=== PATIENT | male | born 1955 | race Caucasian/White ===

== ENCOUNTER 2018-11-15 07:31 | Day surgery (SDC) | payer MEDICARE, OTHER ==
[2018-11-11 15:57] VITALS: BMI 28.0
[~2018-11-15 07:31] MED LIST: LACTATED RINGERS 1,000 ML IV SCH; LIDOCAINE 1% 20 ML VIAL (10MG/ML) FOR IV START INTRADERMA PRN
[2018-11-15 07:56] VITALS: TEMP 97.2
[2018-11-15 08:08] LABS: Glucose,Whole Blood 113 mg/dL (75-99)
[2018-11-15] MEDS ORDERED: KETAMINE 10 MG/ML 20 ML VIAL ONE (08:30)
[2018-11-15] MEDS ORDERED: PROPOFOL 10 MG/ML 20 ML VIAL IV ONE (08:30)
--- NOTE | 2018-11-15 09:06 | P.PCN ---
Date of Procedure: 11/15/18 Procedure(s) Performed: Procedure: Colonoscopy and biopsy. Preoperative diagnosis: Screening for neoplasia. Postoperative diagnosis: Diminutive polyp distal sigmoid biopsied, otherwise, exam to the cecum within normal limits. Preparation: HalfLytely prep. Sedation: Was provided by anesthesia. Brief clinical history: The patient is a 63-year-old male who is scheduled for this evaluation for screening for neoplasia age being his risk factor. He had a prior exam 10 years ago. The patient has no significant complaints, bleeding or anemia. He did have some issues with back pain and associated constipation recently that has responded to treatment. Procedure: With the patient on his left lateral decubitus position and after informed consent and adequate sedation, the perianal area was inspected and it did not show any fissures or fistulas. There were no masses felt on digital rectal examination. The Olympus CFH 190L colonoscope was then inserted in the rectum in the usual fashion and advanced to the cecum. The mucosa appeared healthy. There was a diminutive polyp in the distal sigmoid which I biopsied, otherwise, exam to the cecum within normal limits. The mucosa appeared healthy. No obvious diverticular disease. I retroflexed the endoscope in the rectum before the endoscope was withdrawn. The patient tolerated the procedure well. Plan: The patient was reassured. Discussed dietary measures. Would consider repeat exam in 5-10 years depending on the pathology results. He will follow up with you as planned.
[2018-11-15 09:22] VITALS: BP 118/72; PULSE 59; RESP 16
[2018-11-15 09:28] LABS: Glucose,Whole Blood 75 mg/dL (75-99)
== END 2018-11-15 09:30 | disposition home or self-care (01) ==
LOC: ORWHC2ENDO 07:31
DX: Z12.11 Encounter for screening for malignant neoplasm of colon (principal); K63.5 Polyp of colon; K63.89 Other specified diseases of intestine; I48.91 Unspecified atrial fibrillation; I25.10 Atherosclerotic heart disease of native coronary artery without angina pectoris; E11.9 Type 2 diabetes mellitus without complications; I10 Essential (primary) hypertension; E78.5 Hyperlipidemia, unspecified; Z95.5 Presence of coronary angioplasty implant and graft; K21.9 Gastro-esophageal reflux disease without esophagitis; E07.9 Disorder of thyroid, unspecified; G47.33 Obstructive sleep apnea (adult) (pediatric); Z99.89 Dependence on other enabling machines and devices; Z79.82 Long term (current) use of aspirin; Z79.890 Hormone replacement therapy; Z79.01 Long term (current) use of anticoagulants; Z79.4 Long term (current) use of insulin
CPT/HCPCS: 88305; 45380; J2704

== ENCOUNTER → 2021-04-01 | Outpatient (CLI) | payer MEDICARE, OTHER ==
--- NOTE | 2021-04-01 09:27 | US ---
EXAMINATION TYPE: US duplex aorta DATE OF EXAM: 04/01/2021 COMPARISON: NONE CLINICAL HISTORY: 65-year-old male Z13.6 SCREENING FOR CARDIOVASCULAR DISORDER. EXAM MEASUREMENTS: Abdominal Aorta: Proximal: obscured Mid: 1.5 x 1.9cm Distal: 1.4 x 1.9cm Right Iliac: 0.8 x 1.3cm Left Iliac: 1.0 x 1.3cm De Icer Element Winder notes: Atherosclerotic changes, proximal portion obscured, no AAA seen IMPRESSION: The proximal abdominal aorta is obscured and could not be assessed. No evidence for any significant e ctasia or AAA of the mid to distal portions of the abdominal aorta.
== END | disposition home or self-care (01) ==
LOC: RADUSWWP 08:52
PROVIDERS: ATTEND Family Medicine
DX: Z13.6 Encounter for screening for cardiovascular disorders (principal)
CPT/HCPCS: 93979

== ENCOUNTER → 2022-01-31 | Outpatient (CLI) | payer MEDICARE, OTHER ==
--- NOTE | 2022-01-31 10:21 | CT ---
EXAMINATION TYPE: CT brain wo con DATE OF EXAM: 01/31/2022 HISTORY: Amnesia CT DLP: 1129 mGycm. Automated Exposure Control for Dose Reduction was Utilized. TECHNIQUE: CT scan of the head is performed without contrast. COMPARISON: None. FINDINGS: There is no acute intracranial hemorrhage or midline shift identified. There is mild diff use ventricular and sulcal prominence consistent with diffuse age-related cerebral atrophy. Stacy-whit e matter differentiation is maintained. Patchy cerumen is seen in the deep bilateral external audito ry canals. The globes are intact and the visualized sinuses are clear. IMPRESSION: No acute intracranial hemorrhage or midline shift. There is mild diffuse age-related ce rebral atrophy noted.
== END | disposition home or self-care (01) ==
LOC: RADCTMAIN 08:30
PROVIDERS: ATTEND Family Medicine
DX: G31.9 Degenerative disease of nervous system, unspecified (principal)
CPT/HCPCS: 70450

== ENCOUNTER → 2022-04-08 | Outpatient (CLI) | payer MEDICARE, OTHER ==
--- NOTE | 2022-04-09 09:04 | US ---
EXAMINATION TYPE: US arterial LE single level DATE OF EXAM: 04/08/2022 2:18 PM CLINICAL HISTORY: I73.9 PERIPHERAL VASCULAR DISEASE, UNSPECIFIED. History of hyperlipidemia, coronary artery disease, diabetes, peripheral vascular disease, prior vascular surgery. Doppler Waveforms: Right: Biphasic Left: Biphasic Pressure Gradients: Flattened on the right Ankle-Brachial Indices: Right: CNO Left: CNO Toe Brachial Indices: Right: 0 Left: 0.83 IMPRESSION: Nondiagnostic study.
== END | disposition home or self-care (01) ==
LOC: RADUSWWP 13:39
PROVIDERS: ATTEND Family Medicine
DX: I73.9 Peripheral vascular disease, unspecified (principal)
CPT/HCPCS: 93922

== ENCOUNTER 2022-05-14 11:38 | Inpatient (IN) | payer MEDICARE, OTHER ==
[2022-05-14 15:33] LABS: Basophils % (A) 0 %; Eosinophils # (A) 0.1 k/uL (0-0.7); Eosinophils % (A) 1 %; HCT 46.9 % (39.0-53.0); HGB 15.5 gm/dL (13.0-17.5); Lymphocytes # (A) 2.7 k/uL (1.0-4.8); Lymphocytes % (A) 25 %; MCH 29.7 pg (25.0-35.0); MCHC 33.1 g/dL (31.0-37.0); MCV 89.9 fL (80.0-100.0); Mean Platelet Volume 7.8; Monocytes # (A) 0.5 k/uL (0-1.0); Monocytes % (A) 5 %; Neutrophils # (A) 7.2 k/uL (1.3-7.7); Neutrophils % (A) 68 %; Platelet Count 291 k/uL (150-450); RBC 5.22 m/uL (4.30-5.90); RDW 13.3 % (11.5-15.5); WBC 10.7 k/uL (3.8-10.6)
--- NOTE | 2022-05-14 15:34 | ED ---
General Adult HPI - General Chief complaint: Neuro Symptoms/Deficit Stated complaint: Confusion Time Seen by Provider: 05/14/22 14:28 Source: patient, RN notes reviewed, old records reviewed Mode of arrival: ambulatory Limitations: no limitations - History of Present Illness Initial comments: This is a 66-year-old male who presents emergency Department with a past medical history significant for coronary artery disease and multiple stents. Patient al so has diabetes Patient comes in today because she's had multiple episodes of unresponsiveness according to the . states this started in January and usually last about 5 minutes and then he comes around but during that 5 minutes he does not communicate and he just stares off. states when he comes around he doesn't remember it occurring anterior murmurs or wheezing prior to the event and after the event and he usually back to his baseline quickly. Today the states that it lasted 15 minutes so she decided to bring to the emergency department even though he came back to his baseline after 15 minutes. states she's no shaking or stiffness. states that they never took his sugar when any of these events are occurring. Patient has been feeling fine recently is been no injury or trauma. Patient had a CAT scan back in January and it was normal according to the . Patient currently is at his baseline and has no complaints - Related Data Home Medications Medication Instructions Recorded Confirmed Aspirin [Adult Low Dose Aspirin EC] 81 mg PO DAILY 11/11/18 11/15/18 Atorvastatin [Lipitor] 80 mg PO HS 11/11/18 11/15/18 Citalopram Hydrobromide 20 mg PO DAILY 11/11/18 11/15/18 [Citalopram HBr] Dapagliflozin Propanediol [Farxiga] 5 mg PO DAILY 11/11/18 11/15/18 Insuln Asp Prt/Insulin Aspart 25 unit SQ BID 11/11/18 11/15/18 [NovoLOG MIX 70-30 VIAL] Levothyroxine Sodium [Synthroid] 150 mcg PO QAM 11/11/18 11/15/18 Warfarin [Coumadin] 10 mg PO HS 11/11/18 11/15/18 lisinopriL [Prinivil] 10 mg PO HS 11/11/18 11/15/18 metFORMIN HCL [Glucophage] 500 mg PO BID 11/11/18 11/15/18 raNITIdine HCL [Zantac] 150 mg PO QAM 11/11/18 11/15/18 sitaGLIPtin PHOSPHATE [Januvia] 100 mg PO DAILY 11/11/18 11/15/18 Allergies Allergy/AdvReac Type Severity Reaction Status Date / Time No Known Allergies Allergy Verified 05/14/22 12:38 Review of Systems ROS Statement: Those systems with pertinent positive or pertinent negative responses have been documented in the HPI. ROS Other: All systems not noted in ROS Statement are negative. Past Medical History Past Medical History: Atrial Fibrillation, Coronary Artery Disease (CAD), Cancer, Diabetes Mellitus, Eye Disorder, Hyperlipidemia, Hypertension, Sleep Apnea/CPAP/BIPAP, Thyroid Disorder Additional Past Medical History / Comment(s): no cpap used, lower rt abdominal pain, change in bowel habits, melanoma, diabetic retinopathy History of Any Multi-Drug Resistant Organisms: None Reported Past Surgical History: Cardiac Ablation, Heart Catheterization With Stent Additional Past Surgical History / Comment(s): 7 cardiac stents, melanoma removed from back, cardiac ablation x 2, Past Anesthesia/Blood Transfusion Reactions: Motion Sickness Date of Last Stent Placement:: 2016 Past Psychological History: Depression Past Alcohol Use History: Occasional Past Drug Use History: None Reported - Past Family History Mother Family Medical History: No Reported History General Exam - General Exam Comments Initial Comments: GENERAL: Patient is well-developed and well-nourished. Patient is nontoxic and well- hydrated and is in no acute distress. ENT: Neck is soft and supple. No significant lymphadenopathy is noted. Oropharynx is clear. Moist mucous membranes. Neck has full range of motion without eliciting any pain. EYES: The sclera were anicteric and conjunctiva were pink and moist. Extraocular movements were intact and pupils were equal round and reactive to light. Eyelids were unremarkable. PULMONARY: Unlabored respirations. Good breath sounds bilaterally. No audible rales rhonchi or wheezing was noted. CARDIOVASCULAR: There is a regular rate and rhythm without any murmurs gallops or rubs. ABDOMEN: Soft and nontender with normal bowel sounds. SKIN: Skin is clear with no lesions or rashes and otherwise unremarkable. NEUROLOGIC: Patient is alert and oriented x3. Cranial nerves II through XII are grossly intact. Motor and sensory are also intact. Normal speech, volume and content. Symmetrical smile. MUSCULOSKELETAL: Normal extremities with adequate strength and full range of motion. LYMPHATICS: No significant lymphadenopathy is noted PSYCHIATRIC: Normal psychiatric evaluation. Limitations: no limitations Course Vital Signs 05/14/22 05/14/22 05/14/22 12:31 15:05 16:02 Temperature 97.6 F Pulse Rate 68 70 68 Respiratory 20 15 16 Rate Blood Pressure 117/74 129/85 139/88 O2 Sat by Pulse 95 97 96 Oximetry Medical Decision Making - Medical Decision Making I review the old CAT scan and had no acute abnormalities noted. At this point time since he was back to his baseline he had no neurologic deficits I did not feel a second CAT scan was a seizure. Patient needs to follow-up and get an MRI and possibly see a neurologist for seizures. I spoke with the family and they were in agreement with discharge however just prior to discharge he had another episode emergency department last between 5 and 10 minutes and he was somewhat postictal and slowly came around to his baseline. I was sound physicians and they agreed to admit the patient I admitted the patient I wrote admitting orders. I consult the neurology. - Lab Data Result diagrams: 05/14/22 15:19 05/14/22 15:19 Lab Results 05/14/22 05/14/22 05/14/22 Range/Units 15:19 15:19 15:55 WBC 10.7 H (3.8-10.6) k/uL RBC 5.22 (4.30-5.90) m/uL Hgb 15.5 (13.0-17.5) gm/dL Hct 46.9 (39.0-53.0) % MCV 89.9 (80.0-100.0) fL MCH 29.7 (25.0-35.0) pg MCHC 33.1 (31.0-37.0) g/dL RDW 13.3 (11.5-15.5) % Plt Count 291 (150-450) k/uL MPV 7.8 Neutrophils % 68 % Lymphocytes % 25 % Monocytes % 5 % Eosinophils % 1 % Basophils % 0 % Neutrophils # 7.2 (1.3-7.7) k/uL Lymphocytes # 2.7 (1.0-4.8) k/uL Monocytes # 0.5 (0-1.0) k/uL Eosinophils # 0.1 (0-0.7) k/uL Basophils # 0.0 (0-0.2) k/uL Sodium 137 (137-145) mmol/L Potassium 5.2 H (3.5-5.1) mmol/L Chloride 99 (98-107) mmol/L Carbon Dioxide 22 (22-30) mmol/L Anion Gap 16 mmol/L BUN 15 (9-20) mg/dL Creatinine 0.72 (0.66-1.25) mg/dL Est GFR (CKD-EPI)AfAm >90 (>60 ml/min/1.73 sqM) Est GFR (CKD-EPI)NonAf >90 (>60 ml/min/1.73 sqM) Glucose 158 H (74-99) mg/dL POC Glucose (mg/dL) 144 H (70-110) mg/dL POC Glu Lever Tender ID Bipin Gómez Calcium 9.2 (8.4-10.2) mg/dL Total Bilirubin 1.0 (0.2-1.3) mg/dL AST 42 (17-59) U/L ALT 33 (4-49) U/L Alkaline Phosphatase 56 (38-126) U/L Total Protein 7.6 (6.3-8.2) g/dL Albumin 4.7 (3.5-5.0) g/dL Disposition Clinical Impression: Unresponsive episode, Absence seizure Disposition: ADMITTED IP TO THIS [facility] Instructions (If sedation given, give patient instructions): Seizure/Epilepsy Discharge Instructions & Follow-Up Is patient prescribed a controlled substance at d/c from ED?: No Referrals: Jose Goodson MD [Primary Care Provider] - 1-2 days Time of Disposition: 15:39
[2022-05-14 15:35] LABS: ALT 33 U/L (4-49); AST 42 U/L (17-59); African American GFR (CKD) >90 (>60 ml/min/1.73 sqM); Albumin 4.7 g/dL (3.5-5.0); Alkaline Phosphatase 56 U/L (38-126); Anion Gap 16 mmol/L; Blood Urea Nitrogen 15 mg/dL (9-20); Calcium 9.2 mg/dL (8.4-10.2); Carbon Dioxide 22 mmol/L (22-30); Chloride 99 mmol/L (98-107); Glucose 158 mg/dL (74-99); Non-African American GFR(CKD) >90 (>60 ml/min/1.73 sqM); Sodium 137 mmol/L (137-145); Total Protein 7.6 g/dL (6.3-8.2)
[2022-05-14 15:36] LABS: Potassium 5.2 mmol/L (3.5-5.1)
[2022-05-14 15:58] LABS: Glucose,Whole Blood 144 mg/dL (70-110)
[2022-05-14] MEDS ORDERED: ASPIRIN 325 MG TAB PO STA (16:08)
--- NOTE | 2022-05-14 17:03 | P.HPIM ---
History of Present Illness H&P Date: 05/14/22 History of Presenting Illness: Patient is a very pleasant 66-year-old male with a past medical history of CAD with 9 stents on anticoagulation with Coumadin, hypertension, hyperlipidemia, hypothyroidism, and insulin-dependent diabetes mellitus. He presented to the emergency department along with his and son secondary to reports of episodes of loss of consciousness. Patient's and son at bedside reports that since January patient has had at least 5 episodes in which he suddenly loses consciousness typically lasting anywhere from 30 seconds to 5 minutes and is followed by a brief period of confusion.. She reports today the episode lasted longer than it ever has approximately 15 minutes and was again followed by confusion that she brought him to the emergency department for evaluation. In the emergency department, patient underwent extensive evaluation. During this evaluation patient was noted to have a brief episode of unresponsiveness reportedly lasting between 5 and 10 minutes again followed by what was described as a slightly postictal episode prior to returning to baseline. Patient denies having any complaints prior to loss of consciousness including headache, lightheadedness, dizziness, chest pain, palpitations, changes in taste/smell/vision/hearing, or experiencing any numbness/tingling/weakness in his extremities. Patient states he does not remember event and upon returning to baseline again had no complaints. He underwent full evaluation in the emergency department. CBC revealed mild leukocytosis with WBC count of 10.7 and CMP was unremarkable with the exception of hyperkalemia at 5.2 reported as a hemolyzed specimen. Blood glucose was stable at 158. Patient admitted under our services with consultation to neurology and cardiology. Review of systems: Pertinent positives and negatives as discussed in HPI, a complete review of systems was performed and all other systems are negative. Physical exam: Vital signs reviewed and stable. General: Nontoxic, no distress and appears stated age. Derm: Skin warm and dry, normal coloration for ethnicity. Head: Atraumatic, normocephalic and symmetric. Eyes: EOMs intact, no lid lag, and anicteric sclera Mouth: no lip lesions, mucus membranes moist Cardiovascular: regular rate and rhythm with normal S1S2, no murmur, positive posterior tibial pulses bilaterally, and cap refill < 2 seconds. Lungs: Respirations even, regular, and unlabored on room air. Lungs CTA bilaterally, no rhonchi, no rales, no wheezing, and no accessory muscle usage. Abdominal: soft, nontender to palpation, no guarding, no appreciable organomegaly Ext: ROM intact. No gross muscle atrophy, no edema, no contractures Neuro: Speech clear, face symmetrical and CN II-XII grossly intact with no noted focal neuro deficits Psych: Alert and oriented to person, place, time, and situation. Appropriate and pleasant affect. Assessment and Plan of Care: Loss of consciousness Syncopal episode vs Seizure -Seizure precautions, aspiration precautions, and fall precautions in place. -Neuro checks every 4 hours. -Telemetry monitoring -Order placed for CT of head and EKG to be completed -Stat PT/INR -Neurology consulted -Cardiology consulted -Patient informed of [place] state law stating no driving until free from any loss of consciousness for 6 months. Patient also instructed to avoid climbing ladders, operating dangerous or heavy machinery or unsupervised swimming until seizure free for 6 months. -Echocardiogram -EEG Insulin-dependent diabetes mellitus -Glycemic protocol and continue home insulin regimen . History of CAD Hypertension Hyperlipidemia -Stat PT/INR as patient is on anticoagulation with Coumadin -Continue daily cardiac medication regimen with aspirin, atorvastatin, Coumadin, and metoprolol. Hypothyroidism -TSH with free T4 to be completed. -Continue daily medication regimen with level thyroxine. The patient is admitted with an anticipated less than 2 midnight stay for evaluation of episodic loss of consciousness syncopal episode versus seizure. CODE STATUS: Full code DVT prophylaxis: Coumadin Discussed with: patient, patient's , patient's son, and RN Anticipated discharge date: 24-[address]: : Home A total of 49 minutes was spent on the care of this complex patient more than 50% of the time was spent in counseling and care coordination. I reviewed the documentation as provided by the PIPPA above, who is the original author of this note. I agree with the documented assessment and plan, with the following changes: none Past Medical History Past Medical History: Atrial Fibrillation, Coronary Artery Disease (CAD), Cancer, Diabetes Mellitus, Eye Disorder, Hyperlipidemia, Hypertension, Sleep Apnea/CPAP/BIPAP, Thyroid Disorder Additional Past Medical History / Comment(s): no cpap used, lower rt abdominal pain, change in bowel habits, melanoma, diabetic retinopathy History of Any Multi-Drug Resistant Organisms: None Reported Past Surgical History: Cardiac Ablation, Heart Catheterization With Stent Additional Past Surgical History / Comment(s): 7 cardiac stents, melanoma removed from back, cardiac ablation x 2, Past Anesthesia/Blood Transfusion Reactions: Motion Sickness Date of Last Stent Placement:: 2016 Past Psychological History: Depression Past Alcohol Use History: Occasional Past Drug Use History: None Reported - Past Family History Mother Family Medical History: No Reported History Medications and Allergies Home Medications Medication Instructions Recorded Confirmed Type Aspirin [Adult Low Dose Aspirin EC] 81 mg PO DAILY 11/11/18 05/14/22 History Atorvastatin [Lipitor] 80 mg PO DAILY 11/11/18 05/14/22 History Cholecalciferol [Vitamin D3 (25 25 mcg PO DAILY 05/14/22 05/14/22 History Mcg = 1000 Iu)] DULoxetine HCL [Cymbalta] 30 mg PO DAILY 05/14/22 05/14/22 History Empaglifloz/Linaglip/Metformin 1 tab PO DAILY 05/14/22 05/14/22 History [Trijardy Xr 25-5-1,000 mg Tab] Famotidine [Pepcid] 40 mg PO DAILY 05/14/22 05/14/22 History Insuln Asp Prt/Insulin Aspart 5 unit SQ AC-BRKFST 05/14/22 05/14/22 History [NovoLOG MIX 70-30 VIAL] Insuln Asp Prt/Insulin Aspart 10 unit SQ AC-SUPPER 05/14/22 05/14/22 History [NovoLOG MIX 70-30 VIAL] LORazepam [Ativan] 0.5 mg PO DAILY 05/14/22 05/14/22 History Levothyroxine Sodium [Synthroid] 125 mcg PO DAILY 05/14/22 05/14/22 History Metoprolol Succinate (ER) [Toprol 25 mg PO HS 05/14/22 05/14/22 History Xl] Mirtazapine [Remeron] 15 mg PO HS 05/14/22 05/14/22 History Warfarin Sodium 3 mg PO HS 05/14/22 05/14/22 History Warfarin Sodium 4 mg PO HS 05/14/22 05/14/22 History metFORMIN HCL [Glucophage] 1,000 mg PO W/SUPPER 05/14/22 05/14/22 History Allergies Allergy/AdvReac Type Severity Reaction Status Date / Time No Known Allergies Allergy Verified 05/14/22 12:38 Physical Exam Osteopathic Statement: *. No significant issues noted on an osteopathic structural exam other than those noted in the History and Physical/Consult. Vitals: Vital Signs Temp Pulse Resp BP Pulse Ox 05/14/22 16:02 68 16 139/88 96 05/14/22 15:05 70 15 129/85 97 05/14/22 12:31 97.6 F 68 20 117/74 95 Intake and Output 05/14/22 05/14/22 05/14/22 06:59 14:59 22:59 Other: Weight 79.379 kg Results CBC & Chem 7: 05/14/22 15:19 05/14/22 15:19 Labs: Abnormal Lab Results - Last 24 Hours (Table) 05/14/22 05/14/22 05/14/22 Range/Units 15:19 15:19 15:55 WBC 10.7 H (3.8-10.6) k/uL Potassium 5.2 H (3.5-5.1) mmol/L Glucose 158 H (74-99) mg/dL POC Glucose (mg/dL) 144 H (70-110) mg/dL
[2022-05-14] MEDS ORDERED: NALOXONE 0.4 MG/ML 1 ML VIAL IVP PRN (17:05)
[2022-05-14 18:32] LABS: Glucose,Whole Blood 133 mg/dL (70-110)
[2022-05-14] MEDS ORDERED: DEXTROSE 50% SYRINGE 50 ML IVP PRN ×2 (18:41)
[2022-05-14 19:56] LABS: INR 2.3 (<1.2); Partial Thromboplastin Time 30.9 sec (22.0-30.0); Prothrombin Time 23.2 sec (9.0-12.0)
[2022-05-14] MEDS: MIRTAZAPINE 15 MG TAB PO SCH (22:35)
[2022-05-14] MEDS: METOPROLOL SUCCINATE (ER) 25 MG TAB.ER.24H PO SCH (22:35)
[2022-05-14] MEDS: WARFARIN 2 MG TAB PO SCH (22:36)
[2022-05-14] MEDS: WARFARIN 5 MG TAB PO SCH (22:36)
[2022-05-15 06:09] LABS: Glucose,Whole Blood 97 mg/dL (70-110)
[2022-05-15] MEDS: LEVOTHYROXINE 125 MCG TAB PO SCH (06:46)
[2022-05-15] MEDS: INSULN ASP PRT/INSULIN ASPART 100 UNIT/ML 10 ML VIAL SQ SCH (06:46)
[2022-05-15] MEDS: PANTOPRAZOLE 40 MG TABLET PO SCH (06:46)
[2022-05-15 07:30] LABS: INR 2.3 (<1.2); Prothrombin Time 22.7 sec (9.0-12.0)
[2022-05-15] MEDS ORDERED: ASPIRIN 325 MG TAB PO SCH (09:00)
[2022-05-15] MEDS: DULoxetine HCL 30 MG CAPSULE.DR PO SCH (09:53)
[2022-05-15] MEDS: FAMOTIDINE 20 MG TAB PO SCH (09:53)
[2022-05-15] MEDS: CHOLECALCIFEROL 25 MCG (1000 IU) TABLET PO SCH (09:53)
[2022-05-15] MEDS: ATORVASTATIN 80 MG TAB PO SCH (09:53)
[2022-05-15] MEDS: ASPIRIN 81 MG PO SCH (09:53)
--- NOTE | 2022-05-15 10:13 | P.CRDCN ---
History of Present Illness Consult date: 05/15/22 History of present illness: HISTORY OF PRESENT ILLNESS: This is a 66-year-old male with a past medical history significant for hypertension, hyperlipidemia, diabetes, paroxysmal atrial fibrillation with 2 previous ablations, and coronary artery disease with multivessel PCI. Patient follows with Dr. Byers. We have been asked to see the patient in consultation for syncope versus seizure. Patient examined at the bedside. Patient states over the past few months he has been having episodes where he "zones out". He states he does not loss consciousness. He reports feeling confused after these episodes. He denies loss of bowel or bladder. Denies chest pain or pressure. Denies SOB. Denies dizziness or lightheadedness. * EKG reveals sinus mechanism with no signs of acute ischemia * Laboratory data: WBC 10.7. Hemoglobin 14.5. Platelet Count 291. INR 2.3. Sodium 137. Potassium 5.2. BUN 15. Creatinine 0.72. TSH 3.980. * Current home cardiac medications include Lipitor 80 mg daily, warfarin 7 mg daily, aspirin 81 mg daily, metoprolol succinate 25 mg at night REVIEW OF SYSTEMS: At the time of my exam: CONSTITUTIONAL: Denies fever or chills. HEENT: Denies blurred vision, vision changes, or eye pain. Denies hemoptysis CARDIOVASCULAR: Denies chest pain. Denies orthopnea. Denies PND. Denies palpitations RESPIRATORY: Denies shortness of breath. GASTROINTESTINAL: Denies abdominal pain. Denies nausea or vomiting. HEMATOLOGIC: Denies bleeding disorders. GENITOURINARY: Denies any blood in urine. SKIN: Denies pruitis. Denies rash. PHYSICAL EXAM: VITAL SIGNS: Reviewed. GENERAL: Well-developed in no acute distress. HEENT: Head is normocephalic. Pupils are equal, round. Sclerae anicteric. Mucous membranes of the mouth are moist. Neck supple. No JVD or thyromegaly LUNGS: Respirations even and unlabored. Lungs essentially clear to auscultation bilaterally. HEART: Regular rate and rhythm. S1 and S2 heard. ABDOMEN: Soft. Nondistended. Nontender. EXTREMITIES: Normal range of motion. No clubbing or cyanosis. Peripheral pulses intact. No lower extremity edema NEUROLOGIC: Awake and alert. Oriented x 3. ASSESSMENT: Episodes of unresponsiveness, possible seizures, syncope less likely Coronary artery disease with multivessel PCI Paroxysmal atrial fibrillation History of A. fib ablation 2 Hypertension Hyperlipidemia Diabetes PLAN: Resume home cardiac medications Continue anticoagulation with Coumadin. Monitor INR. Obtain 2-D echo to assess cardiac structure and function Continue telemetry monitoring Neurology consulted. CT and EEG ordered. Further recommendations pending patient course Nurse practitioner note has been reviewed by physician. Signing provider agrees with the documented findings, assessment, and plan of care. Past Medical History Past Medical History: Atrial Fibrillation, Coronary Artery Disease (CAD), Cancer, Diabetes Mellitus, Eye Disorder, Hyperlipidemia, Hypertension, Sleep Apnea/CPAP/BIPAP, Thyroid Disorder Additional Past Medical History / Comment(s): no cpap used, lower rt abdominal pain, change in bowel habits, melanoma, diabetic retinopathy History of Any Multi-Drug Resistant Organisms: None Reported Past Surgical History: Cardiac Ablation, Heart Catheterization With Stent Additional Past Surgical History / Comment(s): 7 cardiac stents, melanoma removed from back, cardiac ablation x 2, Past Anesthesia/Blood Transfusion Reactions: Motion Sickness Date of Last Stent Placement:: 2016 Past Psychological History: Depression Past Alcohol Use History: Occasional Past Drug Use History: None Reported - Past Family History Mother Family Medical History: No Reported History Medications and Allergies Home Medications Medication Instructions Recorded Confirmed Type Aspirin [Adult Low Dose Aspirin EC] 81 mg PO DAILY 11/11/18 05/14/22 History Atorvastatin [Lipitor] 80 mg PO DAILY 11/11/18 05/14/22 History Cholecalciferol [Vitamin D3 (25 25 mcg PO DAILY 05/14/22 05/14/22 History Mcg = 1000 Iu)] DULoxetine HCL [Cymbalta] 30 mg PO DAILY 05/14/22 05/14/22 History Empaglifloz/Linaglip/Metformin 1 tab PO DAILY 05/14/22 05/14/22 History [Trijardy Xr 25-5-1,000 mg Tab] Famotidine [Pepcid] 40 mg PO DAILY 05/14/22 05/14/22 History Insuln Asp Prt/Insulin Aspart 5 unit SQ AC-BRKFST 05/14/22 05/14/22 History [NovoLOG MIX 70-30 VIAL] Insuln Asp Prt/Insulin Aspart 10 unit SQ AC-SUPPER 05/14/22 05/14/22 History [NovoLOG MIX 70-30 VIAL] LORazepam [Ativan] 0.5 mg PO DAILY 05/14/22 05/14/22 History Levothyroxine Sodium [Synthroid] 125 mcg PO DAILY 05/14/22 05/14/22 History Metoprolol Succinate (ER) [Toprol 25 mg PO HS 05/14/22 05/14/22 History Xl] Mirtazapine [Remeron] 15 mg PO HS 05/14/22 05/14/22 History Warfarin Sodium 3 mg PO HS 05/14/22 05/14/22 History Warfarin Sodium 4 mg PO HS 05/14/22 05/14/22 History metFORMIN HCL [Glucophage] 1,000 mg PO W/SUPPER 05/14/22 05/14/22 History Allergies Allergy/AdvReac Type Severity Reaction Status Date / Time No Known Allergies Allergy Verified 05/14/22 12:38 Physical Exam Vitals: Vital Signs Temp Pulse Pulse Pulse Pulse Resp BP 05/15/22 04:00 97.1 F L 54 L 18 05/15/22 02:00 66 84 69 18 05/15/22 00:00 97.1 F L 66 18 05/14/22 21:35 97.1 F L 76 84 69 18 05/14/22 20:00 97.8 F 66 15 126/82 05/14/22 18:30 66 16 136/87 05/14/22 16:02 68 16 139/88 05/14/22 15:05 70 15 129/85 05/14/22 12:31 97.6 F 68 20 117/74 BP BP BP Pulse Ox 05/15/22 04:00 110/72 96 05/15/22 02:00 05/15/22 00:00 116/72 95 05/14/22 21:35 117/73 107/69 135/79 97 05/14/22 20:00 98 05/14/22 18:30 97 05/14/22 16:02 96 05/14/22 15:05 97 05/14/22 12:31 95 Intake and Output 05/14/22 05/15/22 05/15/22 22:59 06:59 14:59 Intake Total 118 Balance 118 Intake: Oral 118 Other: # Voids 2 Weight 79.379 kg 78.2 kg Results 05/14/22 15:19 05/14/22 15:19 Cardiac Enzymes 05/14/22 Range/Units 15:19 AST 42 (17-59) U/L Coagulation 05/14/22 05/15/22 Range/Units 18:52 06:56 PT 23.2 H 22.7 H (9.0-12.0) sec APTT 30.9 H (22.0-30.0) sec CBC 05/14/22 Range/Units 15:19 WBC 10.7 H (3.8-10.6) k/uL RBC 5.22 (4.30-5.90) m/uL Hgb 15.5 (13.0-17.5) gm/dL Hct 46.9 (39.0-53.0) % Plt Count 291 (150-450) k/uL Comprehensive Metabolic Panel 05/14/22 Range/Units 15:19 Sodium 137 (137-145) mmol/L Potassium 5.2 H (3.5-5.1) mmol/L Chloride 99 (98-107) mmol/L Carbon Dioxide 22 (22-30) mmol/L BUN 15 (9-20) mg/dL Creatinine 0.72 (0.66-1.25) mg/dL Glucose 158 H (74-99) mg/dL Calcium 9.2 (8.4-10.2) mg/dL AST 42 (17-59) U/L ALT 33 (4-49) U/L Alkaline Phosphatase 56 (38-126) U/L Total Protein 7.6 (6.3-8.2) g/dL Albumin 4.7 (3.5-5.0) g/dL Current Medications Generic Name Dose Route Start Last Admin Trade Name Patrizia PRN Reason Stop Dose Admin Aspirin 81 mg 05/15/22 09:00 05/15/22 09:53 Aspirin 81 Mg PO 81 mg DAILY TORRES Administration Atorvastatin Calcium 80 mg 05/15/22 09:00 05/15/22 09:53 Atorvastatin 80 Mg Tab PO 80 mg DAILY TORRES Administration Cholecalciferol 25 mcg 05/15/22 09:00 05/15/22 09:53 Cholecalciferol 25 Mcg (1000 Iu) Tablet PO 25 mcg DAILY TORRES Administration Dextrose/Water 25 ml 05/14/22 18:41 Dextrose 50% Syringe 50 Ml IVP PER PROTOCOL PRN Hypoglycemia Protocol Dextrose/Water 50 ml 05/14/22 18:41 Dextrose 50% Syringe 50 Ml IVP PER PROTOCOL PRN Hypoglycemia Protocol Duloxetine HCl 30 mg 05/15/22 09:00 05/15/22 09:53 Duloxetine Hcl 30 Mg Capsule.Dr PO 30 mg DAILY TORRES Administration Famotidine 40 mg 05/15/22 09:00 05/15/22 09:53 Famotidine 20 Mg Tab PO 40 mg DAILY TORRES Administration Insulin Aspart 5 unit 05/15/22 07:30 05/15/22 06:46 Insuln Asp Prt/Insulin Aspart 100 Unit/Ml 10 Ml Vial SQ 5 unit AC-BRKFST TORRES Administration Insulin Aspart 10 unit 05/15/22 17:30 Insuln Asp Prt/Insulin Aspart 100 Unit/Ml 10 Ml Vial SQ AC-SUPPER TORRES Levothyroxine Sodium 125 mcg 05/15/22 06:30 05/15/22 06:46 Levothyroxine 125 Mcg Tab PO 125 mcg DAILY@0630 TORRES Administration Metoprolol Succinate 25 mg 05/14/22 21:00 05/14/22 22:35 Metoprolol Succinate (Er) 25 Mg Tab.Er.24h PO 25 mg HS TORRES Administration Mirtazapine 15 mg 05/14/22 21:00 05/14/22 22:35 Mirtazapine 15 Mg Tab PO 15 mg HS TORRES Administration Miscellaneous Information 1 each 05/14/22 18:42 Warfarin Per Pharmacy MISCELLANE DIRECTED PRN Per Protocol Protocol Naloxone HCl 0.2 mg 05/14/22 17:05 Naloxone 0.4 Mg/Ml 1 Ml Vial IVP Q2M PRN Opioid Reversal Pantoprazole Sodium 40 mg 05/15/22 07:30 05/15/22 06:46 Pantoprazole 40 Mg Tablet PO 40 mg AC-BRKFST TORRES Administration Warfarin Sodium 5 mg 05/14/22 21:00 05/14/22 22:36 Warfarin 5 Mg Tab PO 5 mg DAILY@1800 TORRES Administration Warfarin Sodium 2 mg 05/14/22 21:00 05/14/22 22:36 Warfarin 2 Mg Tab PO 2 mg DAILY@1800 TORRES Administration Intake and Output 05/14/22 05/15/22 05/15/22 22:59 06:59 14:59 Intake Total 118 Balance 118 Intake: Oral 118 Other: # Voids 2 Weight 79.379 kg 78.2 kg 05/14/22 15:19 05/14/22 15:19
[2022-05-15 10:49] LABS: Chol/HDL Ratio 3.55 Ratio; LDL Cholesterol,Calculated 52.8 mg/dL (0.0-131.0)
[2022-05-15 11:50] LABS: Glucose,Whole Blood 141 mg/dL (70-110)
--- NOTE | 2022-05-15 12:30 | P.PN ---
Subjective Progress Note Date: 05/15/22 Hospital course: Patient is a very pleasant 66-year-old male with a past medical history of CAD with 9 stents, paroxysmal atrial fibrillation status post cardiac ablation on anticoagulation with Coumadin, hypertension, hyperlipidemia, hypothyroidism, and insulin-dependent diabetes mellitus. He presented to the emergency department on 05/14/22 with his and son secondary to reports of episodes of loss of consciousness. Patient's and son at bedside reports that since January patient has had at least 5 episodes in which he suddenly loses consciousness typically lasting anywhere from 30 seconds to 5 minutes and is followed by a brief period of confusion.. She reports today the episode lasted longer than it ever has approximately 15 minutes and was again followed by confusion that she brought him to the emergency department for evaluation. In the emergency department, patient underwent extensive evaluation. During this evaluation patient was noted to have a brief episode of unresponsiveness reportedly lasting between 5 and 10 minutes again followed by what was described as a slightly postictal episode prior to returning to baseline. Patient denies having any complaints prior to loss of consciousness including headache, lightheadedness, dizziness, chest pain, palpitations, changes in taste/smell/vision/hearing, or experiencing any numbness/tingling/weakness in his extremities. Patient states he does not remember event and upon returning to baseline again had no complaints. He underwent full evaluation in the emergency department. CBC revealed mild leukocytosis with WBC count of 10.7 and CMP was unremarkable with the exception of hyperkalemia at 5.2 reported as a hemolyzed specimen. Blood glucose was stable at 158. Patient admitted under our services with consultation to neurology and cardiology. Physical exam: Patient was seen and fully evaluated at bedside this morning. at bedside. Patient denies having any complaints at this time including headache, lightheadedness, dizziness, chest pain, palpitations, shortness of breath, or experiencing any numbness/tingling/weakness in his extremities. Patient has had no further episodes of unresponsiveness since reported episode in ER. EEG, echocardiogram, and CT have been completed and pending results. Vital signs reviewed and stable. General: Nontoxic, no distress and appears stated age. Derm: Skin warm and dry, normal coloration for ethnicity. Head: Atraumatic, normocephalic and symmetric. Eyes: EOMs intact, no lid lag, and anicteric sclera Mouth: no lip lesions, mucus membranes moist Cardiovascular: regular rate and rhythm with normal S1S2, no murmur, positive posterior tibial pulses bilaterally, and cap refill < 2 seconds. Lungs: Respirations even, regular, and unlabored on room air. Lungs CTA bilaterally, no rhonchi, no rales, no wheezing, and no accessory muscle usage. Abdominal: soft, nontender to palpation, no guarding, no appreciable organomegaly Ext: ROM intact. No gross muscle atrophy, no edema, no contractures Neuro: Speech clear, face symmetrical and CN II-XII grossly intact with no noted focal neuro deficits Psych: Alert and oriented to person, place, time, and situation. Appropriate and pleasant affect. Assessment and Plan of Care: Loss of consciousness Syncopal episode vs Seizure -Seizure precautions, aspiration precautions, and fall precautions in place. -Neuro checks every 4 hours. -Telemetry monitoring -CT head completed and awaiting read by radiologist -INR therapeutic -Neurology following, appreciate further recommendations -Cardiology following, appreciate further recommendations -Patient informed of [place] state law stating no driving until free from any loss of consciousness for 6 months. Patient also instructed to avoid climbing ladders, operating dangerous or heavy machinery or unsupervised swimming until seizure free for 6 months. -Echocardiogram completed and pending results -EEG completed and pending results Insulin-dependent diabetes mellitus -Glycemic protocol and continue home insulin regimen . Metformin held at this time. History of CAD Hypertension Hyperlipidemia -INR therapeutic 2.3 -Continue daily cardiac medication regimen with aspirin, atorvastatin, Coumadin, and metoprolol. Hypothyroidism -TSH 3.980. -Continue daily medication regimen with level thyroxine. CODE STATUS: Full code DVT prophylaxis: Coumadin Discussed with: patient, patient's , patient's son, and RN Anticipated discharge date: 24-[address]: : Home A total of 37 minutes was spent on the care of this complex patient more than 50% of the time was spent in counseling and care coordination. I reviewed the documentation as provided by the PIPPA above, who is the original author of this note. I agree with the documented assessment and plan, with the following changes: none Objective - Vital Signs Vital signs: Vital Signs Temp 97.1 F L 05/15/22 04:00 Pulse 54 L 05/15/22 04:00 Resp 18 05/15/22 04:00 BP 110/72 05/15/22 04:00 Pulse Ox 96 05/15/22 04:00 FiO2 Intake & Output 05/14/22 05/15/22 05/15/22 18:59 06:59 18:59 Weight 79.379 kg 78.2 kg Other: # Voids 2 - Labs CBC & Chem 7: 05/14/22 15:19 05/14/22 15:19 Labs: Abnormal Lab Results - Last 24 Hours (Table) 05/14/22 05/14/22 05/14/22 Range/Units 15:19 15:19 15:55 WBC 10.7 H (3.8-10.6) k/uL PT (9.0-12.0) sec INR (<1.2) APTT (22.0-30.0) sec Potassium 5.2 H (3.5-5.1) mmol/L Glucose 158 H (74-99) mg/dL POC Glucose (mg/dL) 144 H (70-110) mg/dL 05/14/22 05/14/22 05/15/22 Range/Units 18:29 18:52 06:56 WBC (3.8-10.6) k/uL PT 23.2 H 22.7 H (9.0-12.0) sec INR 2.3 H 2.3 H (<1.2) APTT 30.9 H (22.0-30.0) sec Potassium (3.5-5.1) mmol/L Glucose (74-99) mg/dL POC Glucose (mg/dL) 133 H (70-110) mg/dL
[2022-05-15] MEDS: LORazepam 0.5 MG TAB PO SCH (12:47)
--- NOTE | 2022-05-15 13:16 | CT ---
EXAMINATION TYPE: CT brain wo con DATE OF EXAM: 05/14/2022 HISTORY: Syncope versus seizure CT DLP: 1249 mGycm. Automated Exposure Control for Dose Reduction was Utilized. TECHNIQUE: CT scan of the head is performed without contrast. COMPARISON: CT brain January 31, 2022. FINDINGS: There is no acute intracranial hemorrhage or midline shift identified. There is mild diff use ventricular and sulcal prominence consistent with diffuse age-related cerebral atrophy. Stacy-whit e matter differentiation fairly well-maintained. Patchy cerumen bilaterally redemonstrated. The glob es are intact and the visualized sinuses are clear. IMPRESSION: No acute intracranial hemorrhage or midline shift. No significant change from prior CT.
[2022-05-15] MEDS: levETIRAcetam 500 MG TAB PO SCH ×2 (15:43→20:48)
[2022-05-15 17:00] LABS: Glucose,Whole Blood 238 mg/dL (70-110)
[2022-05-15] MEDS: WARFARIN 5 MG TAB PO SCH (17:21)
[2022-05-15] MEDS: WARFARIN 2 MG TAB PO SCH (17:21)
[2022-05-15] MEDS ORDERED: INSULN ASP PRT/INSULIN ASPART 100 UNIT/ML 10 ML VIAL SQ SCH (17:30)
[2022-05-15] MEDS ORDERED: CALCIUM CARBONATE 500 MG CHEWABLE PO PRN (18:51)
--- NOTE | 2022-05-15 19:04 | P.CNNES ---
History of Present Illness Consult date: 05/15/22 Requesting physician: Alonzo Ballesteros Reason for Consult: Unresponsive episodes, possible absence seizure History of Present Illness: Patient is a 66-year-old right-handed male with past medical history of CAD, diabetes came to the hospital yesterday at 11:38 AM for evaluation of episodes of unresponsiveness. Patient's son and were also present at the time of this interview. Patient's mentions that patient has about half a dozen episodes in the last few months in which he either zones out or is unresponsive. It takes a while to collect his thought and to get to the reality. The first episode occurred in December 2021 in which he became real quiet and zoned out. Patient's felt that it was his anxiety or panic attack, that he has been suffering for last 3 years. In January 2022 he was trying to sell his house and was in a lot of stress and suddenly he had an episode in which he did not know what he was doing. It lasted for several minutes. Patient's took him to his primary physician, and patient underwent a computed tomography scan of the head and a carotid ultrasound. He had 4 other similar spells after that. He had an episode yesterday morning that lasted for about 15-20 minutes. It took a little longer to come out of it. Therefore his brought him to the ER. Each episo de starts with all of a sudden his head drops, and then he looks up, his eyes are really wide, and as if "staring at you". He would not say anything, does not remember what happened, sometimes gets confused with it. After couple minutes he ask as to what he was doing. Patient never has any convulsive activity, tongue bite or loss of control of urine. Patient was evaluated in the ER by the ED staff, was recommended to follow up with the neurologist for further evaluation. However just before his discharge, patient had an episode in the ER witnessed by the ED staff, therefore he was admitted for further evaluation. This episode lasted for about 10 minutes. When he came out, he did not know where he was at, what date or year is it. said "what happened, I cannot remember". Vital signs on arrival blood pressure 117/74, pulse is 68 temperature 97.6. Blood test shows WBC 10.7 hemoglobin 15.5, platelets 291. INR is 2.3 sodium is normal, potassium 5.2, renal functions, hepatic panel normal. TSH normal 3.98. CT head showed no acute process some hypodensity in the left insular region, appears chronic in nature. This was also present in the previous computed tomography scan of head from this was also present and the computed tomography scan from 01/31/2022 although it is slightly more prominent on the current study. Official radiology report pending due to problems with [employer]. EKG shows normal sinus rhythm. Patient had a carotid Doppler performed on 01/24/2022 which revealed fairly moderate atherosclerotic changes without hemodynamically significant stenosis in either ICA. Antegrade flow in both vertebral arteries. Patient denies any history of concussions, no family history of epilepsy. No history of childhood seizures. Patient's parents early, father at age 47 of CVA and mother at age 50 of [place]. Patient states that he has been diagnosed with anxiety disorder for last 3 years. He sees a psychiatrist and a therapist. Patient has history of diabet es, hypertension, atrial fibrillation, status post ablation 2 in the past. Also has multiple cardiac stents. Patient's home medications include aspirin 81 mg, Lipitor 80 mg, insulin, vitamin D, metoprolol, levothyroxine, Coumadin, Remeron 15 mg at bedtime, Cymbalta 30 mg, Trijardy, metformin. Patient is compliant with his Coumadin and aspirin. Patient has smoked for 6 years, quit at age 18. No alcohol use. Review of Systems Constitutional: Denies chills, Denies fever Eyes: denies blurred vision, denies pain Ears, nose, mouth and throat: Denies headache, Denies sore throat Cardiovascular: Denies chest pain, Denies shortness of breath Respiratory: Denies cough Gastrointestinal: Denies abdominal pain, Denies diarrhea, Denies nausea, Denies vomiting Musculoskeletal: Denies myalgias Integumentary: Denies pruritus, Denies rash Neurological: Reports as per HPI, Denies convulsions, Denies loss of vision, Denies numbness, Denies weakness Psychiatric: Reports anxiety, Reports depression Endocrine: Reports as per HPI Hematologic/Lymphatic: Denies easy bruising Allergic/Immunologic: Denies persistent infections Past Medical History Past Medical History: Atrial Fibrillation, Coronary Artery Disease (CAD), Ca ncer, Diabetes Mellitus, Eye Disorder, Hyperlipidemia, Hypertension, Sleep Apnea/CPAP/BIPAP, Thyroid Disorder Additional Past Medical History / Comment(s): no cpap used, lower rt abdominal pain, change in bowel habits, melanoma, diabetic retinopathy History of Any Multi-Drug Resistant Organisms: None Reported Past Surgical History: Cardiac Ablation, Heart Catheterization With Stent Additional Past Surgical History / Comment(s): 7 cardiac stents, melanoma removed from back, cardiac ablation x 2, Past Anesthesia/Blood Transfusion Reactions: Motion Sickness Date of Last Stent Placement:: 2016 Past Psychological History: Depression Past Alcohol Use History: Occasional Past Drug Use History: None Reported - Past Family History Mother Family Medical History: No Reported History Medications and Allergies Home Medications Medication Instructions Recorded Confirmed Type Aspirin [Adult Low Dose Aspirin EC] 81 mg PO DAILY 11/11/18 05/14/22 History Atorvastatin [Lipitor] 80 mg PO DAILY 11/11/18 05/14/22 History Cholecalciferol [Vitamin D3 (25 25 mcg PO DAILY 05/14/22 05/14/22 History Mcg = 1000 Iu)] DULoxetine HCL [Cymbalta] 30 mg PO DAILY 05/14/22 05/14/22 History Empaglifloz/Linaglip/Metformin 1 tab PO DAILY 05/14/22 05/14/22 History [Trijardy Xr 25-5-1,000 mg Tab] Famotidine [Pepcid] 40 mg PO DAILY 05/14/22 05/14/22 History Insuln Asp Prt/Insulin Aspart 5 unit SQ -BRKFST 05/14/22 05/14/22 History [NovoLOG MIX 70-30 VIAL] Insuln Asp Prt/Insulin Aspart 10 unit SQ -SUPPER 05/14/22 05/14/22 History [NovoLOG MIX 70-30 VIAL] LORazepam [Ativan] 0.5 mg PO DAILY 05/14/22 05/14/22 History Levothyroxine Sodium [Synthroid] 125 mcg PO DAILY 05/14/22 05/14/22 History Metoprolol Succinate (ER) [Toprol 25 mg PO HS 05/14/22 05/14/22 History Xl] Mirtazapine [Remeron] 15 mg PO HS 05/14/22 05/14/22 History Warfarin Sodium 3 mg PO HS 05/14/22 05/14/22 History Warfarin Sodium 4 mg PO HS 05/14/22 05/14/22 History metFORMIN HCL [Glucophage] 1,000 mg PO W/SUPPER 05/14/22 05/14/22 History Allergies Allergy/AdvReac Type Severity Reaction Status Date / Time No Known Allergies Allergy Verified 05/14/22 12:38 Physical Examination - Vital Signs Vital Signs: Vital Signs Temp Pulse Pulse Pulse Pulse Resp BP 05/15/22 04:00 97.1 F L 54 L 18 05/15/22 02:00 66 84 69 18 05/15/22 00:00 97.1 F L 66 18 05/14/22 21:35 97.1 F L 76 84 69 18 05/14/22 20:00 97.8 F 66 15 126/82 05/14/22 18:30 66 16 136/87 05/14/22 16:02 68 16 139/88 05/14/22 15:05 70 15 129/85 05/14/22 12:31 97.6 F 68 20 117/74 BP BP BP Pulse Ox 05/15/22 04:00 110/72 96 05/15/22 02:00 05/15/22 00:00 116/72 95 05/14/22 21:35 117/73 107/69 135/79 97 05/14/22 20:00 98 05/14/22 18:30 97 05/14/22 16:02 96 05/14/22 15:05 97 05/14/22 12:31 95 Intake and Output 05/14/22 05/15/22 05/15/22 22:59 06:59 14:59 Intake Total 118 Balance 118 Intake: Oral 118 Other: # Voids 2 Weight 79.379 kg 78.2 kg Patient is an elderly male, very pleasant, in no acute distress. Patient is alert awake oriented to time place and person. Speech and language functions are normal. Patient can name and repeat very well. No aphasia or dysarthria. Attention, concentration and fund of knowledge is adequate. On cranial nerve examination, pupils are equal, round and reacting to light, visual kirk are full on confrontation, with no neglect on double simultaneous stimulation. Extraocular muscles are intact with no nystagmus. Patient has very mild right facial droop, which is new onset as it was not present in his pr evious pictures. His tongue protrudes to the midline. Palatal elevation and sensation normal, hearing and shoulder shrug normal, facial sensation normal. On muscle strength testing, there is no pronator drift and the strength is normal in arms and legs distally and proximally. Deep tendon reflexes are symmetric biceps 1, brachioradialis 1, knees 1+, ankles trace and plantars downgoing bilaterally. Sensory to touch is equal with no neglect on double simultaneous stimulation. Cerebellar function showed no ataxia for [id number] testing. No dysdiadochokinesia. No ataxia for [id number] testing on either side. Tone and bulk of muscles normal. Gait normal. On general examination, there is no carotid bruit or murmur, S1-S2 audible. Chest is clear on consultation. Abdomen is soft nontender. No organomegaly, bowel sounds present. Peripheral pulses are present. No edema. Results - Laboratory Findings CBC and BMP: 05/14/22 15:19 05/14/22 15:19 Abnormal Lab Findings: Abnormal Labs 05/14/22 05/14/22 05/14/22 15:19 15:19 15:55 WBC 10.7 H PT INR APTT Potassium 5.2 H Glucose 158 H POC Glucose (mg/dL) 144 H 05/14/22 05/14/22 05/15/22 18:29 18:52 06:56 WBC PT 23.2 H 22.7 H INR 2.3 H 2.3 H APTT 30.9 H Potassium Glucose POC Glucose (mg/dL) 133 H Assessment and Plan Assessment: * Recurrent episodes of blank stare, and loss of memory, each lasting for 10-15 minutes. Probable complex partial seizures. * Rule out localization related epilepsy * Hypertension * Diabetes * Hyperlipidemia * Atrial fibrillation, on anticoagulation. * Coronary artery disease. * History of cardiac ablation * Anxiety depression Plan: * EEG was performed today. It was probably abnormal with evidence of bilateral temporal slowing, with possible sharp waves involving the right temporal region. We will perform prolonged, 2.5 hours EEG in the morning for further evaluation of epileptiform activity. * MRI of the brain with and without contrast, rule out structural abnormality. * Patient started on Keppra 500 mg twice a day. Possible side effects informed including drowsiness, dizziness and rare behavioral disturbance. * Patient informed of [place] state law of no driving unless seizure free for 6 months, climbing ladders, operating dangerous machinery or unsupervised swimming. * Cardiology also on board, rule out arrhythmia. * Discussed with patient's family in detail as well. * Neurology will follow. Thank you for the consult.
[2022-05-15 20:06] LABS: Glucose,Whole Blood 145 mg/dL (70-110)
[2022-05-15] MEDS: MIRTAZAPINE 15 MG TAB PO SCH (20:48)
[2022-05-15] MEDS: METOPROLOL SUCCINATE (ER) 25 MG TAB.ER.24H PO SCH (20:48)
--- NOTE | 2022-05-15 21:50 | EEG ---
ELECTROENCEPHALOGRAM REPORT DATE OF SERVICE: 05/15/2022 PREAMBLE: This is a 66-year-old male with episodes of unresponsiveness. Rule out seizures. EEG FINDINGS: This is a 21-channel digital EEG recorded with video component, utilizing 10/20 international system with referential and bipolar montages. Background consists of well-developed, well-regulated, moderate-voltage activity in 8 to 9 Hz alpha. Background is posterior dominant and is reactive to eye opening and closing. There is frequent intermittent focal slowing in bitemporal region. Some sharp-appearing waves were seen in the right temporal region. A photic driving response was not seen. Some drowsiness was seen with appearance of bilaterally symmetric theta frequency rhythm. Deeper stages of sleep were not seen. No electrographic seizure was recorded. IMPRESSION: This is an abnormal EEG due to the presence of slowing in bitemporal region with sharp- appearing waves in the right temporal region. This focal slowing is suggestive of focal cortical neuronal dysfunction, and sharp waves imply tendency for underlying cortical irritability and tendency for seizures. No electrographic seizure was recorded. Suggest prolonged study for further evaluation of epileptiform activity. MMODL / IJN: [id number] / MERISSA
[2022-05-16 06:07] LABS: Glucose,Whole Blood 112 mg/dL (70-110)
[2022-05-16] MEDS: PANTOPRAZOLE 40 MG TABLET PO SCH (06:25)
[2022-05-16] MEDS: LEVOTHYROXINE 125 MCG TAB PO SCH (06:25)
[2022-05-16] MEDS: INSULN ASP PRT/INSULIN ASPART 100 UNIT/ML 10 ML VIAL SQ SCH ×2 (06:25→10:16)
[2022-05-16] MEDS: DULoxetine HCL 30 MG CAPSULE.DR PO SCH (10:16)
[2022-05-16] MEDS: ATORVASTATIN 80 MG TAB PO SCH (10:16)
[2022-05-16] MEDS: LORazepam 0.5 MG TAB PO SCH (10:16)
[2022-05-16] MEDS: ASPIRIN 81 MG PO SCH (10:16)
[2022-05-16] MEDS: levETIRAcetam 500 MG TAB PO SCH (10:16)
[2022-05-16] MEDS: FAMOTIDINE 20 MG TAB PO SCH (10:16)
[2022-05-16] MEDS: CHOLECALCIFEROL 25 MCG (1000 IU) TABLET PO SCH (10:16)
[2022-05-16 10:19] VITALS: TEMP 98
[2022-05-16 10:37] LABS: INR 2.3 (<1.2); Prothrombin Time 23.2 sec (9.0-12.0)
[2022-05-16 11:43] LABS: Glucose,Whole Blood 150 mg/dL (70-110)
--- NOTE | 2022-05-16 11:44 | CA ---
Transthoracic Echo Report Name: Moises Francois Age: 66 Gender: M : 1955 Exam Date: 05/15/2022 09:39 Exam Location: [facility] Ht (in): 73 Wt (lb): 172 Ordering Physician: Glenn Louis Attending/Referring Phys: Ade Peralta MD Final Operations Technician Liliane Thakur RDCS Procedure CPT: Indications: Syncopal episodes versus seizure, signif card hx Cardiac Hx: Technical Quality: Technically difficult study Contrast 1: Lumason Total Dose (mL): 4 Contrast 2: Total Dose (mL): MEASUREMENTS (Male / Female) Normal Values 2D ECHO LV Diastolic Diameter PLAX 4.1 cm 4.2 - 5.9 / 3.9 - 5.3 cm LV Systolic Diameter PLAX 2.4 cm IVS Diastolic Thickness 1.1 cm 0.6 - 1.0 / 0.6 - 0.9 cm LVPW Diastolic Thickness 1.3 cm 0.6 - 1.0 / 0.6 - 0.9 cm LV Relative Wall Thickness 0.6 M-MODE Aortic Root Diameter MM 3.2 cm LA Systolic Diameter MM 4.2 cm LA Ao Ratio MM 1.3 AV Cusp Separation MM 1.7 cm DOPPLER AV Peak Velocity 81.5 cm/s AV Peak Gradient 2.7 mmHg LVOT Peak Velocity 67.0 cm/s LVOT Peak Gradient 1.8 mmHg MV Area PHT 4.4 cm??? Mitral E Point Velocity 88.1 cm/s Mitral A Point Velocity 60.6 cm/s Mitral E to A Ratio 1.5 MV Deceleration Time 170.5 ms TR Peak Velocity 262.4 cm/s TR Peak Gradient 27.5 mmHg Right Ventricular Systolic Press 32.5 mmHg FINDINGS Left Ventricle Normal Left ventricular size, wall thickness, systolic function with no obvious regional wall motion abnormalities. Normal Left ventricular diastolic filling pattern. Left ventricular ejection fraction is estimated at 55-60 %. Right Ventricle Normal right ventricular size and function. Right ventricular systolic pressure within normal limits. Right Atrium Normal right atrial size. Left Atrium Mild left atrial dilatation. Mitral Valve Moderate mitral annular calcification. Mild mitral regurgitation. Aortic Valve Trileaflet aortic valve. Aortic valve sclerosis. Tricuspid Valve Structurally normal tricuspid valve. Mild tricuspid regurgitation. Pulmonic Valve Structurally normal pulmonic valve. Trace pulmonic regurgitation. Pericardium No pericardial effusion. Aorta Normal size aortic root and proximal ascending aorta. CONCLUSIONS Normal LV size and systolic function mild mitral and tricuspid insufficiency no pericardial effusion Previewed by: Dr. Darren Perez MD (Electronically Signed) Final Date: 16 May 2022 11:44
--- NOTE | 2022-05-16 11:52 | P.PN ---
Progress Note - Text Progress Note Date: 05/16/22 Patient off the floor for MRI and prolonged EEG during cardiology rounds. 2-D echo obtained revealing ejection fraction is 55-60%, mild MR, mild TR. Per Dr. Tavares, we will sign off. Please reconsult if needed.
[2022-05-16 12:15] VITALS: BP 133/78; PULSE 88; RESP 16
--- NOTE | 2022-05-16 13:50 | MR ---
EXAMINATION TYPE: MR brain wo/w con DATE OF EXAM: 05/16/2022 1:28 PM COMPARISON: NONE HISTORY: Episodes of unresponsiveness, possible seizure. CONTRAST: Patient received 8 mL intravenous Gadavist gadolinium contrast. Multiplanar and multispin-echo imaging of the brain was performed . Pre and post contrast enhanced i mages are obtained. The ventricles, basal cisterns and sulci overlying the cerebral convexities are mildly enlarged. There is evidence of mild periventricular white matter ischemic demyelination. Remote deep white matter insults are also noted. No acute edema is seen on diffusion weighted imaging. There is no evidence for midline shift or mass effect. Acute intracranial hemorrhage or extra-axial collection is not evident. No enhancing lesions are seen. The paranasal sinuses and mastoid air cells are well-aerated. IMPRESSION: Age-related atrophic and chronic small vessel ischemic change. No acute intracranial process at this time. No enhancing lesions are seen.
--- NOTE | 2022-05-16 16:02 | P.DS ---
Providers Date of admission: 05/14/22 16:08 Expected date of discharge: 05/16/22 Attending physician: Miranda Edward DO Consults: 05/14/22 16:09 Consult Physician Routine Consulting Provider: Bryce Carranza Consult Reason/Comments: Unresponsive episodes, possible absence seizure Do you want consulting provider notified?: Yes Primary care physician: Jose Goodson Hospital Course: Discharge Diagnosis: Loss of consciousness, EEG suggestive of seizure activity. Patient diagnosed with seizure disorder and started on Keppra 500 mg twice daily and to follow up outpatient with neurologist. Patient and his were educated on [place] state lawstating no driving until seizure-free for 6 months and advised to avoid climbing ladders, operating dangerous or heavy machinery, and unsupervised swimming until seizure-free for 6 months. Insulin-dependent diabetes mellitus. continue with home medication regimen. History of CAD. Continue daily cardiac medication regimen with aspirin, atorvastatin, Coumadin, and metoprolol. Paroxysmal atrial fibrillation. Continue anticoagulation with Coumadin, INR therapeutic on discharge at 2.3. Hypertension. monitor vital signs and continue daily medication regimen with metoprolol. Hyperlipidemia. Continue heart healthy and carb consistent diet and continue daily medication regimen with atorvastatin. Hypothyroidism. TSH 3.980. Continue daily medication regimen with level thyroxine. Hospital Course: Patient is a very pleasant 66-year-old male with a past medical history of CAD with 9 stents, paroxysmal atrial fibrillation status post cardiac ablation on anticoagulation with Coumadin, hypertension, hyperlipidemia, hypothyroidism, and insulin-dependent diabetes mellitus. He presented to the emergency department on 05/14/22 with his and son secondary to reports of episodes of loss of consciousness. Patient's and son at bedside reports that since January patient has had at least 5 episodes in which he suddenly loses consciousness typically lasting anywhere from 30 seconds to 5 minutes and is followed by a brief period of confusion.. She reports today the episode lasted longer than it ever has approximately 15 minutes and was again followed by confusion that she brought him to the emergency department for evaluation. In the emergency department, patient underwent extensive evaluation. During this evaluation patient was noted to have a brief episode of unresponsiveness reportedly lasting between 5 and 10 minutes again followed by what was described as a slightly postictal episode prior to returning to baseline. Patient denies having any complaints prior to loss of consciousness including headache, lightheadedness, dizziness, chest pain, palpitations, changes in taste/smell/vision/hearing, or experiencing any numbness/tingling/weakness in his extremities. Patient states he does not remember event and upon returning to baseline again had no complaints. He underwent full evaluation in the emergency department. CBC revealed mild leukocytosis with WBC count of 10.7 and CMP was unremarkable with the exception of hyperkalemia at 5.2 reported as a hemolyzed specimen. Blood glucose was stable at 158. Patient admitted under our services with consultation to neurology and cardiology. lipid profile profile showing no significant abnormalities with the exception of low HDL of 32.4. EEG abnormal finding showing focal cortical neuronal dysfunction concerning for underlying cortical irritability and tendency for seizures. Patient started on Keppra 500 mg twice a day. MRI brain revealing age-related atrophic and chronic small vessel ischemic changes negative for acute intercranial process. neurology recommending continuation of Keppra and follow up outpatient with neurologist. Echocardiogram revealing normal EF of 55-60%with mild mitral and tricuspid regurgitation. Cardiologyclearing patient for discharge from cardiac perspective recommending patient to continue daily home cardiac medication regimen with no further cardiac workup suggested at this time. patient is medically stable for discharge at this time. He was educated on [place] state lawstating no driving until seizure-free for 6 months and advised to avoid climbing ladders, operating dangerous or heavy machinery, and unsupervised swimming until seizure-free for 6 months. Patient discharged home with prescription for Keppra 500 mg twice daily and to follow up outpatient with neurologist. Physical exam: Vital signs reviewed and stable. General: Nontoxic, no distress and appears stated age. Derm: Skin warm and dry, normal coloration for ethnicity. Head: Atraumatic, normocephalic and symmetric. Eyes: EOMs intact, no lid lag, and anicteric sclera Mouth: no lip lesions, mucus membranes moist Cardiovascular: regular rate and rhythm with normal S1S2, no murmur, positive posterior tibial pulses bilaterally, and cap refill < 2 seconds. Lungs: Respirations even, regular, and unlabored on room air. Lungs CTA bilaterally, no rhonchi, no rales, no wheezing, and no accessory muscle usage. Abdominal: soft, nontender to palpation, no guarding, no appreciable organomegaly Ext: ROM intact. No gross muscle atrophy, no edema, no contractures Neuro: Speech clear, face symmetrical and CN II-XII grossly intact with no noted focal neuro deficits Psych: Alert and oriented to person, place, time, and situation. Appropriate and pleasant affect. A total of 38 minutes of time were spent preparing this complex discharge summary. Pt was discharged on 05/16/22 at 3:59 PM. I reviewed the documentation as provided by the PIPPA above, who is the original author of this note. I agree with the documented assessment and plan, with the following changes: none Patient Condition at Discharge: Stable Plan - Discharge Summary Discharge Rx Participant: No New Discharge Prescriptions: New levETIRAcetam [Keppra] 500 mg PO Q12HR 60 Days #120 tab Continue Aspirin [Adult Low Dose Aspirin EC] 81 mg PO DAILY Atorvastatin [Lipitor] 80 mg PO DAILY Insuln Asp Prt/Insulin Aspart [NovoLOG MIX 70-30 VIAL] 10 unit SQ AC-SUPPER Cholecalciferol [Vitamin D3 (25 Mcg = 1000 Iu)] 25 mcg PO DAILY LORazepam [Ativan] 0.5 mg PO DAILY Famotidine [Pepcid] 40 mg PO DAILY Metoprolol Succinate (ER) [Toprol XL] 25 mg PO HS Levothyroxine Sodium [Synthroid] 125 mcg PO DAILY Warfarin Sodium 3 mg PO HS Mirtazapine [Remeron] 15 mg PO HS DULoxetine HCL [Cymbalta] 30 mg PO DAILY Warfarin Sodium 4 mg PO HS Empaglifloz/Linaglip/Metformin [Trijardy Xr 25-5-1,000 mg Tab] 1 tab PO DAILY metFORMIN HCL [Glucophage] 1,000 mg PO W/SUPPER Insuln Asp Prt/Insulin Aspart [NovoLOG MIX 70-30 VIAL] 5 unit SQ AC-BRKFST Discharge Medication List Aspirin [Adult Low Dose Aspirin EC] 81 mg PO DAILY 11/11/18 [History] Atorvastatin [Lipitor] 80 mg PO DAILY 11/11/18 [History] Cholecalciferol [Vitamin D3 (25 Mcg = 1000 Iu)] 25 mcg PO DAILY 05/14/22 [History] DULoxetine HCL [Cymbalta] 30 mg PO DAILY 05/14/22 [History] Empaglifloz/Linaglip/Metformin [Trijardy Xr 25-5-1,000 mg Tab] 1 tab PO DAILY 05/14/22 [History] Famotidine [Pepcid] 40 mg PO DAILY 05/14/22 [History] Insuln Asp Prt/Insulin Aspart [NovoLOG MIX 70-30 VIAL] 5 unit SQ AC-BRKFST 05/14/22 [History] Insuln Asp Prt/Insulin Aspart [NovoLOG MIX 70-30 VIAL] 10 unit SQ AC-SUPPER 05/14/22 [History] LORazepam [Ativan] 0.5 mg PO DAILY 05/14/22 [History] Levothyroxine Sodium [Synthroid] 125 mcg PO DAILY 05/14/22 [History] Metoprolol Succinate (ER) [Toprol XL] 25 mg PO HS 05/14/22 [History] Mirtazapine [Remeron] 15 mg PO HS 05/14/22 [History] Warfarin Sodium 3 mg PO HS 05/14/22 [History] Warfarin Sodium 4 mg PO HS 05/14/22 [History] metFORMIN HCL [Glucophage] 1,000 mg PO W/SUPPER 05/14/22 [History] levETIRAcetam [Keppra] 500 mg PO Q12HR 60 Days #120 tab 05/16/22 [Rx] Follow up Appointment(s)/Referral(s): Lucian Pelaez MD [REFERRING] - 1 Week (Office closed at time of discharge, ensure office is aware that this is an appointment following a hospital stay.) Jose Goodson MD [Primary Care Provider] - 1-2 days (Office closed at time of discharge, ensure office is aware that this is an appointment following a hospital stay.) Patient Instructions/Handouts: Seizure/Epilepsy Discharge Instructions & Foll ow-Up, New Onset Absence Seizures in Adults (DC) Activity/Diet/Wound Care/Special Instructions: Activity: As tolerated. Take breaks as needed. Diet: Heart healthy and carb consistent diet. Avoid salts, or foods with hidden salts such as canned or boxed foods and frozen dinners. Extra salt makes your heart work harder and traps the fluid in your body for longer. Special Instructions: Take all of your medications as directed and remember to keep all of your doctor's appointments and follow-up as needed. [place] state law states no driving until seizure free for 6 months. It is also strongly advised to avoid climbing ladders, operating dangerous or heavy machinery or unsupervised swimming until seizure free for 6 months. Thank you for allowing us to participate in your care, it was truly a pleasure having you for our patient!!! Discharge Disposition: HOME SELF-CARE
--- NOTE | 2022-05-17 02:10 | EEG ---
ELECTROENCEPHALOGRAM REPORT ELECTROENCEPHALOGRAM (EEG) REPORT: TECHNIQUE: This is a report from a prolonged 2-1/2-hour inpatient digital video EEG performed using the 10/20 international electrode placement system. HISTORY: Episodes of staring off and being unresponsive. OTHER MEDICAL HISTORY: Includes atrial fibrillation, coronary artery disease, diabetes, and hypertension. CURRENT MEDICATIONS: 1. Aspirin. 2. Lipitor. 3. Insulin. 4. Vitamin D. 5. Metoprolol. 6. Levothyroxine. 7. Coumadin. 8. Remeron. 9. Cymbalta. 10.Metformin. 11.Keppra. FINDINGS: RECORDING START TIME: 05/16/2022, at 07:11 a.m. RECORDING END TIME: 05/16/2022, at 09:48 a.m. EVENTS: During this 2-1/2-hour video EEG, no clinical or electrographic seizures were recorded. BACKGROUND: The background activity consists of 8 to 9 Hz rhythmic waveforms symmetrically through both posterior quadrants. ACTIVATION: 1. Hyperventilation: Not performed. 2. Photic stimulation: Nonsymmetric driving seen. 3. Sleep: Stages I and II sleep noted. ABNORMALITIES: 1. Frequent moderate-voltage sharp and slow waves were seen with maximal amplitude over the right frontal region, F8 with spread to T4. 2. Frequent right frontotemporal focal theta-range slowing was seen. 3. Independent of the finding in #2 above, [id number] left frontotemporal theta-range slowing was seen. IMPRESSION: Abnormal 2-1/2-hour EEG. No clinical or electrographic seizures were recorded. The sharp waves seen over the right frontotemporal region epileptiform in nature. These findings indicate the presence of an epileptiform focus involving the corresponding region. Independent right greater than left frontotemporal theta-range slowing was seen, which is not epileptiform in nature. These findings indicate mild focal cerebral dysfunction involving the frontotemporal regions, right greater than left. MMODL / IJN: [id number] /
--- NOTE | 2022-05-17 11:53 | P.PN ---
Subjective Progress Note Date: 05/16/22 Patient was seen for a follow-up. Patient is doing well. Offers no complaints. Patient's was also present. Patient's mentions that patient has been having episodes all of a sudden when he would not understand what she is talking, or he would not answer. This has been going on for about one year. She believes that instead of 6 spells that she mentioned, probably he has had around 10 spells of complex partial seizures. Objective - Vital Signs Vital signs: Vital Signs Temp 98 F 05/16/22 12:05 Pulse 88 05/16/22 12:05 Resp 16 05/16/22 12:05 BP 133/78 05/16/22 12:05 Pulse Ox 97 05/16/22 12:05 FiO2 Intake & Output 05/16/22 05/17/22 05/17/22 18:59 06:59 18:59 Intake Total 120 Output Total 0 Balance 120 Intake: Oral 120 Output: Urine 0 Stool 0 Urine/Stool Mix 0 Oral Regurgitation 0 Other: # Voids 2 # Bowel Movements 0 - Exam Mental status, speech and language functions are normal. Gait normal. - Labs CBC & Chem 7: 05/14/22 15:19 05/14/22 15:19 Assessment and Plan Assessment: * Recurrent episodes of blank stare, and loss of memory, each lasting for 10-15 minutes. Probable complex partial seizures. 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 * Coronary artery disease. * History of cardiac ablation * Anxiety depression Plan: * Routine EEG 05/15/2022 was abnormal with evidence of bilateral temporal slowing, with possible sharp waves involving the right temporal region. * Prolonged 2.5 hours EEG performed today revealed sharp waves seen over the right frontal temporal region, which appears epileptiform in nature. These findings indicate the presence of an epileptic focus involving the corresponding region. Independent right greater than left frontotemporal theta range slowing was seen it is not epileptiform in nature. These findings indicate mild focal cerebral dysfunction involving the frontotemporal regions, right greater than left. * MRI of the brain with and without contrast revealed age-related atrophic and chronic small vessel ischemic change. No acute process. I personally reviewed MRI agree with the findings. * Patient started on Keppra 500 mg twice a day. Patient tolerating Keppra very well. No side effects reported. * Patient again informed of [place] state law of no driving unless seizure free for 6 months, climbing ladders, operating dangerous machinery or unsupervised swimming. * patient complains of tiredness. B12 was checked which is 275. Patient was recommended to take vitamin B12 1000 g or any dose available sublingually once daily. Folic acid 16.90. * neurologically clear for discharge. Patient to follow up with neurologist as an outpatient.
== END 2022-05-16 17:05 | disposition home or self-care (01) | DRG 101 ==
LOC: EC 11:38 → 3SCARD 16:08
PROVIDERS: ADMIT Internal Medicine; ATTEND Internal Medicine
PROC: 4A10X4Z Monitoring of Central Nervous Electrical Activity, External Approach (ICD-10-PCS; principal; 2022-05-16)
DX: G40.209 Localization-related (focal) (partial) symptomatic epilepsy and epileptic syndromes with complex partial seizures, not intractable, without status epilepticus (principal); E03.9 Hypothyroidism, unspecified; I25.10 Atherosclerotic heart disease of native coronary artery without angina pectoris; I37.1 Nonrheumatic pulmonary valve insufficiency; E11.319 Type 2 diabetes mellitus with unspecified diabetic retinopathy without macular edema; G31.89 Other specified degenerative diseases of nervous system; E78.5 Hyperlipidemia, unspecified; E87.5 Hyperkalemia; I08.1 Rheumatic disorders of both mitral and tricuspid valves; F32.A Depression, unspecified; F41.0 Panic disorder [episodic paroxysmal anxiety]; I10 Essential (primary) hypertension; I48.0 Paroxysmal atrial fibrillation; Z79.01 Long term (current) use of anticoagulants; Z79.4 Long term (current) use of insulin; Z79.82 Long term (current) use of aspirin; Z79.84 Long term (current) use of oral hypoglycemic drugs; Z79.890 Hormone replacement therapy; Z79.899 Other long term (current) drug therapy; Z85.820 Personal history of malignant melanoma of skin; Z87.891 Personal history of nicotine dependence; Z95.5 Presence of coronary angioplasty implant and graft
CPT/HCPCS: 36415; 70450; 70553; 80053; 80061; 82607; 82746; 84443; 85025; 85610; 85730; 93005; 93306; 95713; 95816; 99285

== ENCOUNTER → 2024-02-04 | Outpatient (CLI) | payer MEDICARE, OTHER ==
--- NOTE | 2024-02-08 11:44 | CT ---
EXAMINATION TYPE: CT chest wo con DATE OF EXAM: 02/04/2024 COMPARISON: Chest x-ray 02/24/2013 HISTORY: Solitary pulmonary nodule, SOB CT DLP: 608 mGycm, Automated exposure control for dose reduction was used. CONTRAST: None TECHNIQUE: Axial images were obtained at 5 mm thick sections. Reconstructed images are reviewed on [employer] computer in the coronal plane. FINDINGS: Portion of the thyroid visualized is normal. No suspicious lung nodules or focal infiltrates are present. No enlarged mediastinal or hilar adenopathy is evident. The ascending aorta diameter at the level o f the main pulmonary artery is 3.6 cm. The main pulmonary artery diameter at the bifurcation is 2.6 cm. There is severe coronary artery calcification present. Minimal pericardial effusion may be presen t. Limited CT sections are obtained through the upper abdomen. Abdomen is essentially unremarkable. IMPRESSION: 1. No acute pulmonary process. 2. Dense coronary artery calcification minimal pericardial effusion. Consider additional cardiac work up.
== END | disposition home or self-care (01) ==
LOC: RADCTMAIN 09:53
PROVIDERS: ATTEND Family Medicine
DX: R91.1 Solitary pulmonary nodule (principal); I31.39 Other pericardial effusion (noninflammatory); I25.10 Atherosclerotic heart disease of native coronary artery without angina pectoris
CPT/HCPCS: 71250